=== PATIENT | female | born 1985 | race Hispanic/Latino ===

== ENCOUNTER 2017-10-15 06:50 | Day surgery (SDC) | payer MEDICAID, OTHER ==
[2017-10-15] MEDS ORDERED: HEPARIN 10,000 UNITS/10 ML ONE (07:15)
[2017-10-15] MEDS ORDERED: XYLOCAINE 1% 20 mL ONE ×2 (07:15→07:54)
[2017-10-15] MEDS ORDERED: NACL BACTERIOSTATIC INFILTRATI ONE (07:35)
[2017-10-15] MEDS ORDERED: MARCAINE 0.25% INFILTRATI ONE ×2 (07:54→09:24)
[2017-10-15] MEDS ORDERED: XYLOCAINE 1% 20 mL INFILTRATI NR (07:57)
[2017-10-15] MEDS ORDERED: SUBLIMAZE IV PRN (08:28)
[2017-10-15] MEDS ORDERED: ZOFRAN IV PRN (08:28)
--- NOTE | 2017-10-15 08:28 | Anesthesia Consultation ---
Anesthesia Consult and Med Hx Date of service: 10/15/17 - Airway Anesthetic Teeth Evaluation: Good ROM Head & Neck: Adequate Mental/Hyoid Distance: Adequate Mallampati Class: Class II Intubation Access Assessment: Good - Pulmonary Exam CTA: Yes - Cardiac Exam Cardiac Exam: RRR - Pre-Operative Health Status ASA Pre-Surgery Classification: ASA2 Proposed Anesthetic Plan: MAC - Pulmonary Hx Smoking: Yes (7 CIG/DAY FOR 12 YEARS) - Central Nervous System Hx Psychiatric Problems: No - Hematic Hx Anemia: Yes - Other Systems Hx Alcohol Use: Yes (OCCAS) Hx Substance Use: No Hx Cancer: No
--- NOTE | 2017-10-15 08:28 | Anesthesia Day of Surgery ---
Anesthesia Day of Surgery - Day of Surgery Patient Examined: Yes Patient H&P Reviewed: Yes Patient is NPO: Yes
[2017-10-15] MEDS ORDERED: DIPRIVAN 10 MG/ML IV ONE (08:29)
[2017-10-15] MEDS ORDERED: XYLOCAINE MPF 2% ONE (08:32)
[2017-10-15] MEDS ORDERED: LACTATED RINGERS 1,000 ML IV SCH (09:00)
[2017-10-15] MEDS ORDERED: VERSED IV NR (09:00)
[2017-10-15] MEDS ORDERED: ANCEF/STERILE WATER 2 GM/20 ML IV NR (09:00)
[2017-10-15] MEDS ORDERED: XYLOCAINE 1% 20 mL INFILTRATI ONE (09:24)
[2017-10-15] MEDS ORDERED: WATER FOR IRRIG STERILE IR ONE (09:24)
[2017-10-15] MEDS ORDERED: SUBLIMAZE ONE (09:53)
[2017-10-15] MEDS ORDERED: ZOFRAN ONE (09:59)
--- NOTE | 2017-10-15 11:26 | Short Stay Summary ---
Short Stay Documentation Date of service: 10/15/17 - History H&P: obtained from office - Allergies and Medications Current Medications: Allergies fluoxetine [From Prozac] Allergy (Verified 10/10/17 15:10) Rash hydromorphone [From Dilaudid] Allergy (Verified 10/10/17 15:10) Rash Home Medications Medication Instructions Recorded Confirmed Last Taken Type Medroxyprogesterone Acetate 20 mg PO DAILY 10/10/17 10/15/17 10/14/17 History Ibuprofen 800 mg PO Q8HR PRN #20 tablet 10/15/17 Unknown Rx Active Medications Cefazolin Sodium (Ancef/Sterile Water 2 Gm/20 Ml) 2 gm IV PREOP NR Stop: 10/15/17 12:00 Fentanyl (Sublimaze) 50 mcg IV Q5MIN PRN PRN Reason: Pain , Severe (7-10) Stop: 10/15/17 13:00 Lactated Ringer's (Lactated Ringers) 1,000 mls @ 100 mls/hr IV DIRECT JENNIFER Last Admin: 10/15/17 09:19 Dose: 100 mls/hr Midazolam HCl (Versed) 2 mg IV PREOP NR Stop: 10/15/17 23:59 Last Admin: 10/15/17 09:20 Dose: 2 mg Ondansetron HCl (Zofran) 4 mg IV ONCE PRN PRN Reason: Nausea And Vomiting Stop: 10/15/17 12:00 - Brief post op/procedure progress note Date of procedure: 10/15/17 Pre-op diagnosis: 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 Post-op diagnosis: same Procedure: Bilateral breast needle localization excisional biopsy Anesthesia: GETA Findings: Radiograph specimen of bilateral breast masses with clips and wire present Surgeon: JULIET LAZO Estimated blood loss: minimal Pathology: list (bilateral breast excisional biopsy) Specimen disposition: to lab Condition: stable - Disposition Condition at discharge: Good Disposition: [id number] TO HOME OR SELFCARE Short Stay Discharge Plan Activity: other (no heavy lifting) Diet: regular Wound: other (keep incision clean and dry; may shower in 24 hours; no baths, pools or lakes; do not rub or scrub incision) Follow up with: Cory GOMEZ [Other] - 7 Days JULIET LAZO MD [Staff Physician] - 7 Days Prescriptions: Ibuprofen 800 mg PO Q8HR PRN #20 tablet PRN Reason: Pain
--- NOTE | 2017-10-15 11:31 | Operative Report ---
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 Postoperative diagnosis: Same Procedure: Left needle localization excisional biopsy and right breast needle localization excisional biopsy Surgeon: Rosy Matute MD [employer] Technician: Patria Mcfarladn MD Anesthesia: General Findings: Left wire and clip present within radiograph specimen; Right wire and clip present within radiograph specimen Complications: None EBL: Minimal Disposition: PACU in good condition Procedure in detail: This is a 32-year-old lady with recent bilateral breast biopsies, left breast biopsy of mass at the 4:00 position 5 cm from the nipple findings of a complex fibroadenoma and mass of the right breast at noel 6:00 position 1-2 cm from the nipple findings of ADH. Recommendations were to proceed with an excisional biopsy of both areas as also recommended by radiology. Patient wished to proceed with the above procedure. Procedure in detail: The patient was taken to radiology for wire placement for localization of area of concern. Patient was then taken to the operating room. Gen. anesthesia was administered. Bilateral breast was prepped and draped in the normal sterile operative fashion. Both wires were identified. Timeout was performed. First began with the right breast, a 6:00 periareolar breast incision was made with a 15 blade knife and dissection taken down to subcutaneous tissues. First began raising of the lateral flap with removal of the wire from the skin, followed by raising of the medial flap, superior flap and inferior flap. The breast area of concern was appropriately removed posteriorly immediately with the aid of the bovie cautery. Implant was not encountered. The wire was not encountered. Specimen was marked and then sent to pathology and radiology; radiograph specimen with wire and clip present. Breast cavity was irrigated and hemostasis was obtained. The breast cavity was anesthetized with 1% lidocaine mixed with quarter percent Marcaine. The subcutaneous tissues were approximated and closed using interrupted 3-0 Vicryl followed by a running 4-0 Monocryl and skin affix. Attention was then taken towards the left breast. A lower outer periareolar breast incision was made with a 15 blade knife and dissection taken down to subcutaneous tissues. First began raising of the lateral flap with removal of the wire from the skin, followed by raising of the medial flap, superior flap and inferior flap. The breast area of concern was appropriately removed posteriorly immediately with the aid of the bovie cautery. Implant was not encountered. The wire was not encountered. Specimen was marked and then sent to pathology and radiology; radiograph specimen with wire and clip present. Breast cavity was irrigated and hemostasis was obtained. The breast cavity was anesthetized with 1% lidocaine mixed with quarter percent Marcaine. The subcutaneous tissues were approximated and closed using interrupted 3-0 Vicryl followed by a running 4-0 Monocryl and skin affix. The patient tolerated surgery very well and she was awaken from anesthesia without any complication and transported to PACU in good condition.
[2017-10-15] MEDS ORDERED: MOTRIN PO PRN (11:56)
[2017-10-15 12:45] VITALS: BP 116/74
--- NOTE | 2017-10-15 13:17 | Mammography Report ---
NEEDLE LOCALIZATION AND HOOKWIRE PLACEMENT RIGHT BREAST:10/15/17 CLINICAL: Right breast lesion. COMPARISON: [facility] mammograms FINDINGS: Using mammographic guidance, 1% lidocaine local anesthesia and sterile technique, a 5.0-cm Villas[place]or hookwire was placed from a lateral approach to localize a lesion with a localizer clip at 6 o'clock. Two views demonstrated satisfactory targeting. The hookwire was deployed and an additional CC image obtained. The patient tolerated the procedure well and there were no apparent complications. IMPRESSION: Uncomplicated hookwire placement right breast.
--- NOTE | 2017-10-15 13:19 | Mammography Report ---
SPECIMEN RADIOGRAPH LEFT BREAST: 10/15/17 06:50:00 CLINICAL: Surgical excision of a lesion at 4 o'clock. FINDINGS: The targeted lesion with a biopsy clip and a hookwire are identified within the specimen. IMPRESSION: Excision of the targeted lesion.
--- NOTE | 2017-10-15 13:19 | Mammography Report ---
NEEDLE LOCALIZATION AND HOOKWIRE PLACEMENT LEFT BREAST:10/15/17 CLINICAL: Left breast lesion at 4 o'clock. COMPARISON: [facility] mammograms FINDINGS: Using mammographic guidance, 1% lidocaine local anesthesia and sterile technique, a 5.0-cm Villas[place]or hookwire was placed from a lateral approach to localize a lesion with a localizer clip at 4 o'clock. The hookwire was deployed and an additional CC image was obtained. The patient tolerated the procedure well and there were no apparent complications. IMPRESSION: Uncomplicated hookwire placement left breast.
--- NOTE | 2017-10-15 13:59 | Mammography Report ---
SPECIMEN RADIOGRAPH RIGHT BREAST: 10/15/17 06:50:00 CLINICAL: Surgical excision of a lesion at 6 o'clock. FINDINGS: The targeted lesion with a localizer clip and a hookwire are identified within the specimen. IMPRESSION: Excision of the targeted lesion.
--- NOTE | 2017-10-15 14:47 | Post Anesthesia Evaluation ---
- Post Anesthesia Evaluation Patient Participated: Yes Airway Patent: Yes Stable Respiratory Function: Yes Nausea/Vomiting: No Temp > 96.8F: Yes Pain Manageable: Yes Adequeate Hydration: Yes Anesthesia Complications: No Block Receding Appropriately: Not Applicable
== END 2017-10-15 13:08 | disposition home or self-care (01) ==
LOC: OR 06:50
PROVIDERS: ATTEND Surgery
DX: N60.91 Unspecified benign mammary dysplasia of right breast (principal); R92.0 Mammographic microcalcification found on diagnostic imaging of breast; F17.210 Nicotine dependence, cigarettes, uncomplicated; Z98.890 Other specified postprocedural states; Z88.5 Allergy status to narcotic agent
CPT/HCPCS: 19281; 19301; 76098; 88305; 88307; J0690; J1644; J2250; J2405; J2704; J3010; J7120